=== PATIENT | female | born 1950 | race Caucasian/White ===

== ENCOUNTER 2020-12-07 09:51 | Outpatient (CLI) | payer MEDICARE, SELFPAY ==
--- NOTE | ~2020-12-07 | DEXA_ITS ---
Bone Density Report Name: Yady Blank Age: 70 Sex: Female Ethnicity: White Date of : 1950 Indication: osteopenia; monitoring treatment; height loss; prior fracture; postmenopausal Referring Provider: Gautam Ulloa Study: Bone densitometry was performed. Exam Date: December 07, 2020 Accession number: [id number] Bone Density: Region BMD T-score Z-score Classification AP Spine (L1-L4) 0.895 -1.4 0.7 Osteopenia Femoral Neck (Left) 0.606 -2.2 -0.4 Osteopenia Total Hip (Left) 0.765 -1.5 0.1 Osteopenia Total Hip Bilateral Avg 0.772 -1.5 0.2 Osteopenia Femoral Neck (Right) 0.596 -2.3 -0.5 Osteopenia Total Hip (Right) 0.777 -1.4 0.2 Osteopenia World Health Organization criteria for BMD impression classify patients as: Normal (T-score at or above -1.0), Osteopenia (T-score between -1.0 and -2.5), or Osteoporosis (T-score at or below -2.5). 10-year Fracture Risk: FRAX not reported because: Treated for osteoporosis Previous Exams: Region Exam Age BMD T-score BMD Change BMD Change Date g/cm2 vs Baseline vs Previous AP Spine(L1-L4) 12/07/2020 70 0.895 -1.4 0.102(12.9%)# 0.107(13.6%)* 03/17/2016 65 0.788 -2.4 -0.004(-0.6%)# -0.008(-1.0%) 01/22/2014 63 0.796 -2.3 0.004(0.4%)# 0.061(8.2%)# 11/30/2011 61 0.735 -2.8 -0.057(-7.2%)# -0.057(-7.2%)# 01/14/2008 57 0.792 -2.3 Total Hip(Left) 12/07/2020 70 0.765 -1.5 0.057(8.0%)# 0.056(7.9%)* 03/17/2016 65 0.709 -1.9 0.001(0.1%)# 0.015(2.1%) 01/22/2014 63 0.694 -2.0 -0.014(-2.0%)# -0.003(-0.4%)# 11/30/2011 61 0.697 -2.0 -0.011(-1.6%)# -0.011(-1.6%)# 01/14/2008 57 0.708 -1.9 Total Hip(Right) 12/07/2020 70 0.777 -1.4 0.015(2.0%)# 0.054(7.5%)* 03/17/2016 65 0.723 -1.8 -0.039(-5.1%)# 0.007(1.0%) 01/22/2014 63 0.716 -1.9 -0.046(-6.1%)# -0.007(-1.0%)# 11/30/2011 61 0.723 -1.8 -0.039(-5.1%)# -0.039(-5.1%)# 01/14/2008 57 0.762 -1.5 *Denotes significance at 95% confidence level, LSC for AP Spine = 0.022 g/cm2, LSC for Total Hip = 0.027 g/cm2 Clinical Information Provided by Patient: Has had a low trauma fracture Is being treated for osteoporosis Has used the following medications: Evista (i.e. raloxifene), Prolia (i.e. denosumab), Vitamin D, Calcium Patient maximum height was 65 Menopause Age: 47 Drinks caffeinated beverages Onset of menses at age 13 Number of children 1 Impression: The patient
== END 2020-12-07 09:52 | disposition home or self-care (01) ==
PROVIDERS: PCP Family Medicine; Visit Provider Physician Assistant Medical
DX: Z78.0 Asymptomatic menopausal state (principal); M85.88 Other specified disorders of bone density and structure, other site; M85.852 Other specified disorders of bone density and structure, left thigh; M85.851 Other specified disorders of bone density and structure, right thigh
CPT/HCPCS: 77080

== ENCOUNTER 2021-06-09 16:26 | Outpatient (CLI) | payer MEDICARE, SELFPAY ==
--- NOTE | ~2021-06-09 | XR_ITS ---
XR foot LT min 3V 06/09/2021 17:01 Indication: Fifth metatarsal pain for 2 months. Procedure: 4 views left foot Comparison: No prior studies for comparison. Findings: 2 ossific densities proximal to the fifth metatarsal, suspicious for age-indeterminate avul sandeep fractures. Lisfranc joint intact. Mild osteoarthritis of the first MTP joint. No other fracture identified. Mild soft tissue swelling lateral to the fifth metatarsophalangeal joint. Impression: 1: Ossific densities proximal to the left fifth metatarsal, suspicious for age-indeterminate avulsion fractures. Reviewed, dictated and finalized at location A. [facility] INTERN Impression: 1: Ossific densities proximal to the left fifth metatarsal, suspicious for age- indeterminate avulsion fractures.
== END 2021-06-09 16:27 | disposition home or self-care (01) ==
LOC: ANHIMG 16:29
PROVIDERS: PCP Family Medicine; Visit Provider Family Medicine
DX: M81.0 Age-related osteoporosis without current pathological fracture (principal); M19.042 Primary osteoarthritis, left hand
CPT/HCPCS: 73630

== ENCOUNTER 2021-09-21 13:46 | Outpatient (CLI) | payer MEDICARE, SELFPAY ==
--- NOTE | ~2021-09-21 | MM_ITS ---
EXAMINATION: MM screening [facility] BI w awa HISTORY: Screening TECHNIQUE: Craniocaudal and mediolateral oblique 3-D tomosynthesis images were obtained and synthetic 2-D images were generated. CAD analysis was submitted and interpreted. COMPARISON: Comparison to multiple prior studies sequentially, with oldest reviewed study dated 10/2012. BREAST PARENCHYMAL COMPOSITION: Breast composed of scattered areas of fibroglandular density FINDINGS: There is no evidence of suspicious mass, calcification, or architectural distortion to sugg est malignancy in either breast. There has been no suspicious interval change. IMPRESSION: 1. No mammographic evidence of malignancy. 2. Recommend routine screening mammography in one year. BI-RADS Category 1: Negative Reviewed, dictated and finalized at location A.
== END 2021-09-21 13:47 | disposition home or self-care (01) ==
LOC: ANHIMG 13:48
PROVIDERS: PCP Family Medicine; Visit Provider Family Medicine
DX: Z12.31 Encounter for screening mammogram for malignant neoplasm of breast (principal)
CPT/HCPCS: 77063; 77067

== ENCOUNTER 2023-01-11 09:05 | Outpatient (CLI) | payer MEDICARE, SELFPAY ==
--- NOTE | 2023-01-23 16:04 | WPDHOMESLEEP ---
Sleep Study - Home Unattended Date of Study: 01/11/23 Ordering Provider: Isaac Carl PA-C Interpreting Provider: Kaia Mayfield, DO Home Sleep Study Type: Watch PAT Height: 1.6 m Weight: 56.245 kg Body Mass Index: 21.9 Neck Circumference (inches): 13 [place]: 4 Reason for Sleep Study Snoring, witnessed apneas Sleep History The patient is a 72-year-old female with hyperlipidemia, GERD, osteoporosis and prediabetes that had a sleep study ordered by her primary care for evaluation of sleep apnea. The patient occasionally awakens from sleep short of breath. She occasionally awakens at night with heartburn, belching or cough. She constantly snores loudly enough that others complain. He constantly has trouble sleeping when she has a cold. She occasionally wakes up gasping for air throughout the night. She constantly has breathing problems at night observed by herself or others. She frequently sweats excessively at night. She rarely has heart palpitations or irregular heartbeats during the night. He denies falling asleep during the day and while driving. She denies sleep paralysis, cataplexy and hypnagogic / hypnopompic hallucinations. She denies having trouble at school or work due to sleepiness. She denies feeling afraid of going to sleep. She rarely has nightmares and occasionally remembers her dreams. She occasionally has thoughts racing through her mind. She denies feeling sad or depressed. She rarely has anxiety. She occasionally has muscular tension. She occasionally notices parts of her body jerk. She occasionally kicks during the night. She denies having crawling and aching feelings in her legs and denies having leg pain during the night. She denies grinding her teeth during sleep and denies awakening with morning jaw pain. She is occasionally bothered by pain during the day and occasionally awakened by pain during the night. She constantly wakes up feeling stiff in the morning. She frequently wakes up with sore or achy muscles. She rarely wakes up with pain in the neck, spine or other joints. He goes to bed at 10:30 p.m. on weekdays and between 10:30 p.m. to 11:00 p.m. on the weekends. It takes her 30 minutes to fall asleep. She wakes up 1-2 times throughout the night for unknown reasons and a can take 1-3 hours for her to fall back asleep. She wakes up between 6:30-7 a.m. on weekdays and at 7:00 a.m. on the weekends. She typically gets 7-8 hours of sleep per night. She will stay in bed for 15-30 minutes after waking up in the morning. She currently lives with her . She denies consuming any caffeinated beverages within 2 hours of bedtime. She denies engaging in physical exercise before bedtime. She will read watch television before falling asleep. She will take naps in the afternoon or the evening and they are refreshing. She will consume some caffeinated beverages throughout the day. She will have an alcoholic beverage 2-3 times per week. 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 Actinic keratosis Age related osteoporosis Atypical squamous cells of undetermined significance (ASCUS) on Papanicolaou smear of cervix Chondrodermatitis nodularis helicis left ear Mixed hyperlipidemia Postmenopausal Prediabetes Surgical History Surgical History History of appendectomy (~1970) History of colonoscopy (~02/07/09) History of hysterectomy Family History Family History Sibling Diabetes mellitus Hypertension Mother Family history of osteoporosis Hypertension Family history of congestive heart failure Diabetes mellitus Family history of dementia Multiple myeloma Father Hypertension Family history of cardiovas
[2023-01-23 16:12] VITALS: BMI 21.9
== END 2023-01-11 12:00 | disposition home or self-care (01) ==
LOC: ANHCSM 09:06
PROVIDERS: PCP Family Medicine; Visit Provider Physician Assistant
DX: R53.83 Other fatigue (principal); G47.30 Sleep apnea, unspecified; G47.33 Obstructive sleep apnea (adult) (pediatric); G47.00 Insomnia, unspecified
CPT/HCPCS: 95800